=== PATIENT | female | born 2005 | race Caucasian/White ===

== ENCOUNTER 2024-07-27 06:44 | Outpatient (REF) | payer OTHER, SELFPAY ==
--- NOTE | ~2024-07-27 | US_ITS ---
EXAMINATION: US PELVIS TRANSABDOMINAL AND TRANSVAGINAL HISTORY: IRREGULAR PERIODS COMPARISON: There are no prior studies for comparison. TECHNIQUE: Transabdominal real-time 2D floyd-scale ultrasound was performed. The patient declined endovaginal examination. FINDINGS: Uterus: The uterus is normal in size, measuring 7.3 x 3.6 x 3.7 cm. Myometrium has a normal echotexture. No fibroids are identified. Endometrium: The endometrial stripe measures 2 mm in thickness. Right ovary: The right ovary measures 3.6 x 1.4 x 2.2 cm. The right ovary is normal in size and echotexture. Left ovary: The left ovary measures 3.1 x 1.5 x 1.5 cm. The left ovary is normal in size and echotexture. Pelvic fluid: none. US/US pelvic and transvaginal IMPRESSION: Unremarkable pelvic ultrasound. Electronically signed by: Jim Otero MD 07/27/2024 09:48 AM [facility]
== END 2024-07-27 06:45 | disposition home or self-care (01) ==
LOC: HO.UMASIMG 06:44
PROVIDERS: Visit Provider Nurse Practitioner Women's Health
DX: N92.6 Irregular menstruation, unspecified (principal)
CPT/HCPCS: 76830; 76856

== ENCOUNTER → 2024-07-27 08:45 | Outpatient (BNV) | payer OTHER, SELFPAY | PROVIDERS: Visit Provider Radiology Diagnostic Radiology | DX: N92.0 Excessive and frequent menstruation with regular cycle (principal) | CPT/HCPCS: 76830; 76856 ==